=== PATIENT | female | born 1965 | race Caucasian/White ===

== ENCOUNTER → 2017-05-03 16:45 | Outpatient (CLI) | payer MEDICARE ==
[~2017-05-03 16:45] MED LIST: BACLOFEN10 MG PO; BENADRYL25 MG PO; BUSPAR10 MG PO; COLACE100 MG PO; COUMADIN10 MG PO; COUMADIN5 MG PO; FLEXERIL10 MG PO; HYDROCODONE-APA1 TAB PO; K-TAB10 MEQ PO; LASIX20 MG PO; LINZESS290 MCG PO; LOVENOX30 MG/0.3 SQ; LYRICA100 MG PO; MIRALAX17 GM PO; PERCOCET 10/3251 TA1 PO; PROAIR HFA8.5 GM INH; REQUIP XL2 MG PO; SINGULAIR10 MG PO; ZOCOR10 MG PO; ZOLOFT100 MG PO
== END | disposition home or self-care (01) ==
LOC: D.MAMMO 10:00
DX: N64.4 Mastodynia (principal)

== ENCOUNTER → 2017-06-15 12:25 | Outpatient (CLI) | payer OTHER ==
[~2017-06-15] VITALS: Ht 162.6 cm; Wt 122.0 kg
[2017-06-15 13:44] VITALS: Ht 162.6 cm; Wt 122.0 kg
== END | disposition home or self-care (01) ==
LOC: D.FANS 12:25
DX: E66.01 Morbid (severe) obesity due to excess calories (principal)

== ENCOUNTER → 2017-09-02 07:04 | Outpatient (CLI) | payer OTHER ==
[2017-06-15 13:44] VITALS: BMI 46.2
== END | disposition home or self-care (01) ==
LOC: D.RT 07:00 → D.RAD 09-14 09:45 → D.LAB 09-14 10:00 → D.RT 10-01 09:00
DX: R06.09 Other forms of dyspnea (principal); J44.9 Chronic obstructive pulmonary disease, unspecified

== ENCOUNTER 2017-10-19 08:23 | Outpatient (CLI) | payer OTHER, MEDICAID ==
[2017-06-15 13:44] VITALS: BMI 46.2
== END 2017-10-19 10:10 ==
LOC: D.OPS 08:23 → D.RAD 10:30
DX: E66.01 Morbid (severe) obesity due to excess calories (principal); Z01.812 Encounter for preprocedural laboratory examination

== ENCOUNTER 2017-11-17 06:37 | Day surgery (SDC) | payer OTHER, MEDICAID ==
[~2017-11-17] VITALS: Ht 160 cm; Wt 120.5 kg
[2017-11-17 07:06] LABS: BASOPHILS 0.6 % (0-2); HEMATOCRIT 42.2 % (36.0-48.0); IMMATURE GRANULOCYTES 0.3 % (0-5); LYMPHOCYTES 36.3 % (15-50); MCH 30.1 pg (26.0-34.0); MCHC 33.2 g/dL (31.0-37.0); MCV 90.8 fL (80.0-100.0); MEAN PLATELET VOLUME 9.8 fL (7.4-10.4); MONOCYTES 5.4 % (2-11); NEUTROPHILS 54.4 % (40-80); PLATELET COUNT 400 10x3/uL (130-400); RBC 4.65 10x6/uL (4.00-5.40); RDW 13.3 % (11.5-14.5); WBC 10.5 10x3/uL (4.8-10.8)
[2017-11-17 07:13] LABS: ANION GAP 7.7 mmol/L (8-16); CALCIUM 8.5 mg/dL (8.5-10.1); CARBON DIOXIDE 31.3 mmol/L (21.0-32.0)
[2017-11-17 07:46] LABS: APTT 29.5 SECONDS (22.8-39.4); INR 1.05 (0.85-1.17); PROTIME 13.3 SECONDS (11.6-15.0)
[2017-11-17] MEDS ORDERED: TYLENOL #4 W/CO1 TAB (07:51)
[2017-11-17 08:10] VITALS: BP 132/73; Ht 160 cm; Wt 120.5 kg
== END 2017-11-17 11:20 | disposition home or self-care (01) ==
LOC: D.OPS 06:37
PROVIDERS: Anesthesiology
DX: K21.0 Gastro-esophageal reflux disease with esophagitis (principal); K29.50 Unspecified chronic gastritis without bleeding; E11.9 Type 2 diabetes mellitus without complications; E66.9 Obesity, unspecified; Z01.812 Encounter for preprocedural laboratory examination

== ENCOUNTER 2018-06-13 15:30 | Outpatient (CLI) | payer OTHER, MEDICAID ==
[2017-11-17 08:10] VITALS: BMI 47.0
[~2018-06-13 15:30] MED LIST changes: +TYLENOL #4 W/CO1 TAB
== END 2018-06-13 16:30 | disposition home or self-care (01) ==
LOC: D.MAMMO 15:30
PROVIDERS: ATTEND Family Medicine
DX: Z12.31 Encounter for screening mammogram for malignant neoplasm of breast (principal)

== ENCOUNTER → 2019-09-11 08:00 | Outpatient (CLI) | payer OTHER, MEDICAID ==
[2017-11-17 08:10] VITALS: BMI 47.0
== END | disposition home or self-care (01) ==
LOC: D.MAMMO 08:00
PROVIDERS: ATTEND Family Medicine
DX: Z12.31 Encounter for screening mammogram for malignant neoplasm of breast (principal)